=== PATIENT | male | born 1980 | race African-American/Black ===

== ENCOUNTER 2022-02-23 12:33 | Emergency (ER) | payer SELFPAY ==
--- NOTE | ~2022-02-23 | XR_ITS ---
EXAMINATION: XR chest 2V DATE: 02/23/2022 13:04 INDICATION: Cough and shortness of breath TECHNIQUE: PA and lateral views of the chest were obtained. COMPARISON: None FINDINGS: Subpleural opacities with well-defined smooth margins at the lateral aspect of the bilateral lower sultana ng zones, more subtle on the right, which could be related to body habitus and increased subpleural f at. No other airspace opacities, pulmonary edema, pleural effusion or pneumothorax. The cardiomediast inal silhouette is normal. Visualized bones and soft tissues are unremarkable. IMPRESSION: 1. Subpleural opacities at the lateral aspect of the bilateral lower lung zones most likely related t o body habitus and increased subpleural fat. Low-dose noncontrast chest CT could be obtained for more definitive determination. No other acute cardiopulmonary disease. Reviewed, dictated and finalized at location A. IMPRESSION: 1. Subpleural opacities at the lateral aspect of the bilateral lower lung zones most likely related to body habitus and increased subpleural fat. Low-dose non contrast chest CT could be obtained for more definitive determination. No other acute cardiopulmonary disease.
[2022-02-23 12:34] VITALS: BP 184/116; PULSE 88; RESP 18; TEMP 36.1; O2SAT 99
--- NOTE | 2022-02-23 12:42 | ED.URI ---
HPI - URI/Sore Throat General Chief Complaint: Upper Respiratory Infection Stated Complaint: asthma issues Time Seen by Provider: 02/23/22 12:41 History of Present Illness HPI Narrative: 41-year-old male with history of COPD presents emergency room for evaluation of shortness of breath and a productive cough. Patient states he is from out of town and visiting family, and is realized that he has become short of breath. Has been taking his duo nebulizers every 4 hours. Patient reports history of COPD exacerbation requiring steroids. Patient denies fever. Denies sinus congestion, postnasal drip, rhinorrhea, or sneezing. Related Data Allergies Allergy/AdvReac Type Severity Reaction Status Date / Time No Known Allergies Allergy Verified 02/23/22 13:07 Review of Systems Review of Systems: CONSTITUTIONAL: Denies fever, chills, or sweats. EYES: Denies visual changes, redness, or discharge. ENT: Denies rhinorrhea, congestion, sore throat, or otalgia. CARDIOVASCULAR: Denies chest pain, palpitations, or edema. RESPIRATORY: Reports cough or dyspnea. GASTROINTESTINAL: Denies abdominal pain, nausea, vomiting, or diarrhea. GENITOURINARY: Denies dysuria or hematuria. SKIN: Denies rash or itching. MUSCULOSKELETAL: Denies back pain, joint pain, or myalgia. NEUROLOGIC: Denies headache, numbness, dizziness, or weakness. PSYCHIATRIC: Denies anxiety or depression. Exam Narrative: GENERAL: Well-appearing, well-nourished, no physical limitations, and in no acute distress. HEAD: Normocephalic, atraumatic. EYES: Conjunctivae normal, PERRLA and EOMI. NECK: Supple. No meningeal signs. No adenopathy or masses. No carotid bruits or JVD CHEST: Clear to auscultation. No respiratory distress. No wheezes rales or rhonchi. No tenderness. HEART: Regular rate and rhythm. No murmur heard. Normal peripheral pulses. EXTREMITIES: Normal range of motion. No edema. No clubbing or cyanosis SKIN: Warm, dry, no rash. No noted wounds NEURO: No focal deficits. Alert and oriented x3. MAEW. CN's II-XI intact bilaterally, normal gait PSYCH: Cooperative. Normal mood and affect. Course Vital Signs Vital signs: Vital Signs Temperature 36.1 C L 02/23/22 12:34 Pulse Rate 88 02/23/22 12:34 Respiratory Rate 18 02/23/22 12:34 Blood Pressure 184/116 H 02/23/22 12:34 Pulse Oximetry 99 02/23/22 12:34 Oxygen Delivery Room Air 02/23/22 12:34 Temperature 36.1 C L 02/23/22 12:34 Pulse Rate 88 02/23/22 12:34 Respiratory Rate 18 02/23/22 12:34 Blood Pressure 184/116 H 02/23/22 12:34 Pulse Oximetry 99 02/23/22 12:34 Oxygen Delivery Room Air 02/23/22 12:34 MDM - URI/Sore Throat Lab Data Labs: Lab Results 02/23/22 Range/Units 12:49 SARS-CoV-2 RNA (RT-PCR) Negative Discharge Plan Discharge Clinical Impression: Acute exacerbation of chronic obstructive pulmonary disease Patient Disposition: Home, Self-Care Condition: Stable Instructions: Antibiotic Form, Chronic Cough (ED) Prescriptions: New prednisone 20 mg tablet 60 mg PO DAILY 5 Days Qty: 15 0RF hydrocodone-chlorpheniramine 10-8 mg/5 mL suspension,extended rel 12 hr 5 ml PO Q12H PRN (Reason: cough) Qty: 473 0RF Follow-up/Referrals: PHYSICIAN NOT ON STAFF,NONSTAFF [Primary Care Provider] - Time of Disposition: 13:29
[2022-02-23 13:50] LABS: SARS-CoV-2 RNA PCR Negative
== END 2022-02-23 13:49 | disposition home or self-care (01) ==
PROVIDERS: Emergency Provider Nurse Practitioner Family
DX: J44.1 Chronic obstructive pulmonary disease with (acute) exacerbation (principal)
CPT/HCPCS: 71046; 96372; 99283; C9803; J1100; U0003; U0005